=== PATIENT | female | born 1995 | race Hispanic/Latino ===

== ENCOUNTER 2018-08-18 22:04 | Emergency (ER) | payer OTHER ==
[2018-08-18 22:44] LABS: APPEARANCE,URINE Clear (CLEAR); BILIRUBIN,URINE Negative (NEGATIVE); COLOR,URINE Yellow (YELLOW); GLUCOSE, URINE (UA) Negative (NEGATIVE); KETONES,URINE Trace mg/dL (NEGATIVE); LEUKOCYTE ESTERASE ,URINE Small (NEGATIVE); NITRATE,URINE Negative (NEGATIVE); OCCULT BLOOD,URINE Negative (NEGATIVE); PH,URINE 6.5 (5.0-8.0); PROTEIN,URINE Trace (NEGATIVE)
[2018-08-18 22:48] LABS: HCG,QUAL RESULT NEGATIVE (NEGATIVE)
[2018-08-18 22:54] LABS: BACTERIA,URINE Few /HPF (None Seen); MUCUS,URINE Few LPF (None Seen); RBC,URINE 0-1 /HPF (0-1)
[2018-08-18] MEDS ORDERED: HYOSCYAMINE SULFATE 0.125 MG TAB.SUBL SL ONE (23:00)
[2018-08-18] MEDS ORDERED: ONDANSETRON ODT 4 MG TAB ONE (23:01)
[2018-08-18] MEDS ORDERED: TRAMADOL HCL 50 MG TABLET ONE (23:02)
[2018-08-19 00:15] LABS: CREATININE 0.5 mg/dL (0.5-1.5); POTASSIUM 3.8 mmol/L (3.5-5.1)
[2018-08-19 00:16] LABS: BASOPHILS % (AUTO) 0.5 % (0.0-5.0); EOSINOPHILS % (AUTO) 1.5 % (0.0-8.0); HEMATOCRIT 38.4 % (36-48); LYMPHOCYTES % (AUTO) 27.2 % (21.0-51.0); MEAN CORPUSCULAR HEMOGLOBIN 29.1 pg (27.0-33.0); MEAN CORPUSCULAR VOLUME 85.5 fL (79-99); NEUTROPHILS % (AUTO) 62.8 % (40.0-77.0); PLATELET COUNT (AUTO) 403 K/uL (130-400); RED BLOOD CELL COUNT(AUTO) 4.49 MIL/uL (4.00-5.50); RED CELL DISTRIBUTION WIDTH 13.1 % (11.0-15.5); WHITE BLOOD COUNT (AUTO) 12.5 K/uL (4.8-10.8)
[2018-08-19 00:20] LABS: ALBUMIN 3.7 g/dL (3.5-5.0); BILIRUBIN,TOTAL 0.1 mg/dL (0.2-1.0); TOTAL PROTEIN, SERUM 7.5 g/dL (6.0-8.3)
[2018-08-19] MEDS ORDERED: KETOROLAC TROMETHAMINE 30MG/ML ONE (00:43)
== END 2018-08-19 01:04 | disposition home or self-care (01) ==
LOC: EDH 22:04
DX: K80.50 Calculus of bile duct without cholangitis or cholecystitis without obstruction (principal); Z72.0 Tobacco use; Z98.890 Other specified postprocedural states
CPT/HCPCS: 36415; 80053; 81001; 81025; 85025; 96374; 99284; J1885

== ENCOUNTER 2019-03-04 15:15 | Observation (INO) | payer MEDICAID ==
[~2019-03-04] VITALS: Ht 147.3 cm; Wt 79.4 kg
[2019-03-04 15:57] LABS: APPEARANCE,URINE CLOUDY (CLEAR); BILIRUBIN,URINE NEGATIVE (NEGATIVE); COLOR,URINE YELLOW (YELLOW); GLUCOSE, URINE (UA) NEGATIVE (NEGATIVE); KETONES,URINE NEGATIVE (NEGATIVE); LEUKOCYTE ESTERASE ,URINE LARGE (NEGATIVE); NITRATE,URINE POSITIVE (NEGATIVE); OCCULT BLOOD,URINE MODERATE (NEGATIVE); PH,URINE 6.5 (5.0-8.0); PROTEIN,URINE TRACE mg/dL (NEGATIVE)
[2019-03-04 16:07] LABS: BACTERIA,URINE Moderate /HPF (None Seen)
[2019-03-04 16:08] LABS: MUCUS,URINE Few LPF (None Seen); SQUAMOUS EPITHELIAL CELL,UR Moderate /HPF (0-2)
[2019-03-04] MEDS ORDERED: LACTATED RINGERS 1000ML 1,000 ML IV ONE (17:00)
[2019-03-04] MEDS ORDERED: CEFTRIAXONE SODIUM 1 GM IV SCH (17:00)
[2019-03-04 18:55] LABS: AMPHET/METH SCREEN,URINE NEGATIVE (NEGATIVE); BARBITURATE SCREEN, URINE NEGATIVE (NEGATIVE); BENZODIAZEPINES SCREEN,URINE NEGATIVE (NEGATIVE); CANNABINOID SCREEN,URINE NEGATIVE (NEGATIVE); COCAINE SCREEN,URINE NEGATIVE (NEGATIVE); OPIATE SCREEN,URINE NEGATIVE (NEGATIVE); PHENCYCLIDINE SCREEN,URINE NEGATIVE (NEGATIVE)
== END 2019-03-04 17:15 | disposition home or self-care (01) ==
LOC: LDH 15:15
PROVIDERS: ADMIT Obstetrics & Gynecology; ATTEND Obstetrics & Gynecology
DX: O26.853 Spotting complicating pregnancy, third trimester (principal); Z3A.31 31 weeks gestation of pregnancy; Z79.899 Other long term (current) drug therapy
CPT/HCPCS: 76805; 76819; 80305; 81001; G0378 ×2; J0696; J7120 ×2; 96360; 96372

== ENCOUNTER 2019-04-28 21:48 | Emergency (ER) | payer MEDICAID | END 2019-04-28 22:12 | disposition home or self-care (01) | LOC: EDH 21:48 | DX: Z48.01 Encounter for change or removal of surgical wound dressing (principal); Z98.890 Other specified postprocedural states | CPT/HCPCS: 99281 ==

== ENCOUNTER 2019-05-15 12:46 | Observation (INO) | payer MEDICAID ==
[~2019-05-15] VITALS: Ht 144.8 cm; Wt 73.0 kg
[2019-05-15] MEDS ORDERED: SODIUM CHLORIDE 0.9% 1000ML 1,000 ML IV ONE ×2 (13:13→19:56)
[2019-05-15] MEDS ORDERED: ONDANSETRON HCL 4 MG/2 ML VIAL ONE (13:14)
[2019-05-15] MEDS ORDERED: KETOROLAC TROMETHAMINE 15MG/ML ONE (13:14)
[2019-05-15] MEDS ORDERED: DICYCLOMINE HCL 10 MG/ML 2ML AMP IM ONE (13:14)
[2019-05-15 14:22] LABS: BASOPHILS % (AUTO) 0.1 % (0.0-5.0); EOSINOPHILS % (AUTO) 0.1 % (0.0-8.0); HEMATOCRIT 38.7 % (36-48); LYMPHOCYTES % (AUTO) 5.8 % (21.0-51.0); MEAN CORPUSCULAR HEMOGLOBIN 26.9 pg (27.0-33.0); MEAN CORPUSCULAR HGB CONC 33.4 g/dL (32.0-36.0); MEAN CORPUSCULAR VOLUME 80.5 fL (79-99); MONOCYTES % (AUTO) 5.9 % (3.0-13.0); NEUTROPHILS % (AUTO) 88.1 % (40.0-77.0); PLATELET COUNT (AUTO) 463 K/uL (130-400); RED CELL DISTRIBUTION WIDTH 15.2 % (11.0-15.5); WHITE BLOOD COUNT (AUTO) 16.2 K/uL (4.8-10.8)
[2019-05-15 14:38] LABS: CREATININE 0.5 mg/dL (0.5-1.5); POTASSIUM 3.8 mmol/L (3.5-5.1)
[2019-05-15 14:44] LABS: BILIRUBIN,TOTAL 0.5 mg/dL (0.2-1.0); TOTAL PROTEIN, SERUM 8.6 g/dL (6.0-8.3)
[2019-05-15 14:52] LABS: APPEARANCE,URINE Clear (CLEAR); BILIRUBIN,URINE Negative (NEGATIVE); COLOR,URINE Yellow (YELLOW); GLUCOSE, URINE (UA) Negative (NEGATIVE); KETONES,URINE >=80 mg/dL (NEGATIVE); LEUKOCYTE ESTERASE ,URINE Negative (NEGATIVE); NITRATE,URINE Negative (NEGATIVE); OCCULT BLOOD,URINE Large (NEGATIVE); PH,URINE 5.5 (5.0-8.0); PROTEIN,URINE POS 2+ mg/dL (NEGATIVE)
[2019-05-15 14:56] LABS: HCG,QUAL RESULT NEGATIVE (NEGATIVE)
[2019-05-15 15:02] LABS: BACTERIA,URINE Few /HPF (None Seen); WBC,URINE 0-1 /HPF (0-1)
[2019-05-15] MEDS ORDERED: ZOSYN 3.375GM+NS 50ML 50 ML IV ONE ×2 (15:26→15:38)
[2019-05-15] MEDS ORDERED: MORPHINE SULFATE 2 MG/ML 1ML SYG IVP PRN (16:00)
[2019-05-15] MEDS ORDERED: KETOROLAC TROMETHAMINE 15MG/ML IM PRN (16:00)
[2019-05-15] MEDS ORDERED: MORPHINE SULFATE 2 MG/ML 1ML SYG IV PRN (16:15)
[2019-05-15] MEDS ORDERED: ONDANSETRON HCL 4 MG/2 ML VIAL IV PRN (16:15)
[2019-05-15] MEDS ORDERED: ZOLPIDEM TARTRATE 5 MG TAB PO PRN (16:15)
[2019-05-15] MEDS ORDERED: ACETAMINOPHEN 325 MG TAB PO PRN ×2 (16:15)
[2019-05-15] MEDS ORDERED: FAMOTIDINE 20MG TAB 20 MG TAB ONE (19:53)
[2019-05-15] MEDS: ZOSYN 3.375GM+NS 50ML 50 ML IV SCH (21:00)
[2019-05-15] MEDS: FAMOTIDINE 20MG TAB 20 MG TAB PO SCH (21:00)
[2019-05-15 21:40] VITALS: BP 126/91
[2019-05-15 23:08] VITALS: BP 158/78
[2019-05-16] VITALS (24 sets, daily range): BP systolic 98–150; BP diastolic 42–99
[2019-05-16] MEDS: SODIUM CHLORIDE 0.9% 1000ML 1,000 ML IV SCH ×3 (02:14→17:34)
[2019-05-16 04:16] LABS: HEMATOCRIT 34.8 % (36-48); MEAN CORPUSCULAR HEMOGLOBIN 26.4 pg (27.0-33.0); MEAN CORPUSCULAR HGB CONC 33.2 g/dL (32.0-36.0); MEAN CORPUSCULAR VOLUME 79.5 fL (79-99); PLATELET COUNT (AUTO) 377 K/uL (130-400); RED BLOOD CELL COUNT(AUTO) 4.38 MIL/uL (4.00-5.50); RED CELL DISTRIBUTION WIDTH 15.1 % (11.0-15.5); WHITE BLOOD COUNT (AUTO) 12.5 K/uL (4.8-10.8)
[2019-05-16 04:25] LABS: ALBUMIN 3.2 g/dL (3.5-5.0); BILIRUBIN,TOTAL 0.7 mg/dL (0.2-1.0); CREATININE 0.5 mg/dL (0.5-1.5); POTASSIUM 3.7 mmol/L (3.5-5.1); TOTAL PROTEIN, SERUM 7.2 g/dL (6.0-8.3)
[2019-05-16 04:39] LABS: EOSINOPHILS % (MANUAL) 2 % (1-6); LYMPHOCYTES % (MANUAL) 25 % (22-44); MAN.DIFF COMMENT-IMPRESSION MANUAL DIFFERENTIAL; MONOCYTES % (MANUAL) 8 % (2-9); PLATELET MORPHOLOGY COMMENT ADEQUATE; SEGMENTED NEUTROPHILS % 65 % (40-70)
[2019-05-16] MEDS: ZOSYN 3.375GM+NS 50ML 50 ML IV SCH ×3 (05:13→21:35)
--- NOTE | 2019-05-16 08:00 | NUR ---
ASSESSMENT: RECEIVED RESTING IN BED, EXPLAINED POC AND UNDERSTANDING VERBALIZED, CALL MG AT HER SIDE. UNDERSTANDS NPO STATUS. DENIES PAIN
[2019-05-16] MEDS: FAMOTIDINE 20MG TAB 20 MG TAB PO SCH ×2 (09:00→21:35)
--- NOTE | 2019-05-16 12:00 | NUR ---
CONSULT: DR FOX( SURGEON) HERE AND REVIEWED PT'S LABS , RADIOLOGY RESULTS. SPOKE WITH PT AND AND MADE RECOMMENDATIONS FOR SURGERY, DISCUSSED WITH PT PROCEDURE FOR LAPARASCOPIC CHOLECYSTECTOMY, POSSIBLE OPEN, PT AND VERBALIZE UNDERSTANDING AND AGREE WITH POC. DR FOX ANSWERED ALL OF PT'S QUESTIONS.
--- NOTE | 2019-05-16 12:45 | NUR ---
HYGEINE: TAKING SHOWER
--- NOTE | 2019-05-16 13:00 | NUR ---
CONSENT: CONSENT FOR LAP PAM, POSS OPEN PRESENTED TO PT AND WITNESSED SIGNATURE, UNDERSTANDS PROCEDURE EXPLAINED BY DR Kathy ODOM
--- NOTE | 2019-05-16 13:16 | NUR ---
BONDING: FEEDING BABY. FAMILY IN THE ROOM.
--- NOTE | 2019-05-16 13:25 | NUR ---
SURGERY: TAKEN TO THE OR DEPT VIA BED PER Severino MILAN RN (SBAR REPORT GIVEN) PT'S MOTHER AT HER SIDE.
[2019-05-16] MEDS ORDERED: MIDAZOLAM HCL 1 MG/ML 2ML VIAL ONE ×2 (13:35→14:20)
[2019-05-16] MEDS ORDERED: SUCCINYLCHOLINE 200MG/10ML SYR ONE (13:35)
[2019-05-16] MEDS ORDERED: LIDOCAINE PF 2% 5ML ABBOJECT ONE (13:35)
[2019-05-16] MEDS ORDERED: DEXAMETHASONE SOD PHOSPHATE 10MG/ML 1ML VIAL ONE ×2 (13:35→13:40)
[2019-05-16] MEDS ORDERED: ROCURONIUM 10MG/1ML SYR 10 MG/ML ML ONE (13:36)
[2019-05-16] MEDS ORDERED: FENTANYL CITRATE PF 50 MCG/1 ML 2ML VIAL ONE ×2 (13:36→14:55)
[2019-05-16] MEDS ORDERED: NEOSTIGMINE 5MG/5ML SYR IV ONE (13:36)
[2019-05-16] MEDS ORDERED: PROPOFOL 10 MG/ML 20ML VIAL IV ONE (13:36)
[2019-05-16] MEDS ORDERED: GLYCOPYRROLATE 1 MG/5 ML SYRINGE ONE (13:36)
[2019-05-16] MEDS ORDERED: ONDANSETRON HCL 4 MG/2 ML VIAL ONE (13:36)
[2019-05-16] MEDS ORDERED: LIDOCAINE HCL 2% JELLY 5 ML ONE (13:40)
[2019-05-16] MEDS ORDERED: LIDOCAINE HCL 4% LTA SOL 4 ML VIAL ONE (13:40)
[2019-05-16] MEDS ORDERED: ESMOLOL HCL 10 MG/ML 10 ML VIAL ONE (14:24)
--- NOTE | 2019-05-16 16:20 | NUR ---
POST OP: RECEIVED FROM PACU POST OP NICKOLAS OROZCO VIA BED TO 119. PT DROWSY, MADE COMFORTABLE, EXPLAINED POC AND UNDERSTANDING VERBALIZED, CALL MG AT HER SIDE. FAMILY IN THE ROOM.
--- NOTE | 2019-05-16 18:30 | NUR ---
ELIMINATION: AMB TO BR AND VOIDED LG AMTS CL YELLOW URINE. INSTRUCTED ON LOUISA CARE AND RETURNED DEMONSTRATION.
--- NOTE | 2019-05-16 18:54 | NUR ---
ACTIVITY: SITTING UP IN CHAIR, AND FAMILY IN THE ROOM.
[2019-05-16] MEDS ORDERED: OXYCODONE/ACETAMIN 5/325MG TAB PO PRN (19:00)
[2019-05-17 03:07] VITALS: BP 135/84
[2019-05-17 04:34] LABS: BASOPHILS % (AUTO) 0.2 % (0.0-5.0); LYMPHOCYTES % (AUTO) 9.8 % (21.0-51.0); MEAN CORPUSCULAR HEMOGLOBIN 27.3 pg (27.0-33.0); MEAN CORPUSCULAR VOLUME 80.5 fL (79-99); MONOCYTES % (AUTO) 6.8 % (3.0-13.0); NEUTROPHILS % (AUTO) 83.2 % (40.0-77.0); PLATELET COUNT (AUTO) 387 K/uL (130-400); RED BLOOD CELL COUNT(AUTO) 4.11 MIL/uL (4.00-5.50); WHITE BLOOD COUNT (AUTO) 10.8 K/uL (4.8-10.8)
[2019-05-17] MEDS: ZOSYN 3.375GM+NS 50ML 50 ML IV SCH (04:37)
[2019-05-17] MEDS: SODIUM CHLORIDE 0.9% 1000ML 1,000 ML IV SCH (04:38)
[2019-05-17 04:43] LABS: CREATININE 0.5 mg/dL (0.5-1.5); POTASSIUM 4.1 mmol/L (3.5-5.1)
[2019-05-17 07:00] VITALS: BP 130/79
--- NOTE | 2019-05-17 07:15 | NUR ---
ASSESSMENT: RECEIVED RESTING IN BED, EXPLAINED POC AND UNDERSTANDING VERBALIZED, DENIES PAIN. IV FLUIDS INF WELL. CALL MG AT HER SIDE.
--- NOTE | 2019-05-17 07:30 | NUR ---
ASSESSMENT: DR GASPAR HERE ASSESSED PT, REVIEWED AM LABS. SPOKE WITH PT AND DISCUSSED POC FOR DISCHARGE HOME TODAY IF OK WITH DR FOX, PT AND VERBALIZE UNDERSTANDING AND AGREE WITH POC.
[2019-05-17] MEDS ORDERED: IBUP-2077 PO (07:42)
[2019-05-17] MEDS ORDERED: CEPH-578 PO (07:42)
--- NOTE | 2019-05-17 09:30 | NUR ---
BONDING: BREAST FEEDING HER BABY.
--- NOTE | 2019-05-17 10:00 | NUR ---
ACTIVITY: AMBULATING IN ROOM WITH NO DISCOMFORT.
--- NOTE | 2019-05-17 11:00 | NUR ---
HYGEINE: TAKING SHOWER
--- NOTE | 2019-05-17 11:30 | NUR ---
DISCHARGE: SPOKE WITH DR FOX AND UPDATE GIVEN AND ORDERS TO DISCHARGE HOME AND FOLLOW UP IN 1 WEEK. PT MADE AWARE OF ORDERS.
--- NOTE | 2019-05-17 11:38 | NUR ---
ACTIVITY: AMB IN HALLWAY.
[2019-05-17 12:18] VITALS: BP 128/76
--- NOTE | 2019-05-17 13:00 | NUR ---
DISCHARGE: DISCHARGE INSTRUCTIONS GIVEN TO PT AND ON SELF CARE POST LAP PAM, DIET TO FOLLOW, INCISION CARE, ACTIVITY, REVIEWED RX'S FOR HOME MEDS AND TO FOLLOW UP WITH DR Kathy ANAYA ON FRIDAY 05/25 [id number] OR SOONER IF NEEDED. UNDERSTANDING VERBALIZED AND COPIES OF ALL INSTRUCTIONS GIVEN TO PT.
--- NOTE | 2019-05-17 13:15 | NUR ---
DISCHARGE: DISCHARGED HOME VIA W/C TO PRIVATE CAR WITH .
== END 2019-05-17 13:15 | disposition home or self-care (01) ==
LOC: EDH 12:46 → EDHIP 12:47 → WSH 21:29
PROVIDERS: ADMIT Family Medicine; ATTEND Family Medicine
DX: K80.00 Calculus of gallbladder with acute cholecystitis without obstruction (principal); E66.9 Obesity, unspecified; R11.2 Nausea with vomiting, unspecified; D72.829 Elevated white blood cell count, unspecified; Z83.3 Family history of diabetes mellitus; Z82.49 Family history of ischemic heart disease and other diseases of the circulatory system; Z79.899 Other long term (current) drug therapy
CPT/HCPCS: 36415 ×3; 47562; 76705; 80048; 80053 ×2; 81001; 81025; 83690; 85025 ×3; 88304; 96361 ×2; 96365; 96366 ×2; 96375; 99284; A4450; A4600; A4649 ×4; A6204; A6207; C1769 ×3; G0378 ×45; J0330; J0500; J1100 ×2; J1885; J2001; J2250 ×2; J2405 ×2; J2543 ×7; J2704; J2710; J3010 ×2; J3490 ×2; J7030 ×3

== ENCOUNTER 2019-09-12 13:50 | Emergency (ER) | payer OTHER ==
[~2019-09-12 13:50] MED LIST: CEPH-578 PO; IBUP-2077 PO
[2019-09-12 15:32] LABS: BASOPHILS % (AUTO) 0.2 % (0.0-5.0); LYMPHOCYTES % (AUTO) 20.8 % (21.0-51.0); MEAN CORPUSCULAR HEMOGLOBIN 26.5 pg (27.0-33.0); MEAN CORPUSCULAR HGB CONC 32.7 g/dL (32.0-36.0); MEAN CORPUSCULAR VOLUME 81.1 fL (79-99); MONOCYTES % (AUTO) 7.4 % (3.0-13.0); NEUTROPHILS % (AUTO) 70.3 % (40.0-77.0); PLATELET COUNT (AUTO) 445 K/uL (130-400); RED BLOOD CELL COUNT(AUTO) 4.56 MIL/uL (4.00-5.50); WHITE BLOOD COUNT (AUTO) 9.2 K/uL (4.8-10.8)
[2019-09-12 15:42] LABS: CREATININE 0.5 mg/dL (0.5-1.5); POTASSIUM 3.9 mmol/L (3.5-5.1)
[2019-09-12 16:03] LABS: APPEARANCE,URINE Clear (CLEAR); BILIRUBIN,URINE Negative (NEGATIVE); GLUCOSE, URINE (UA) Negative (NEGATIVE); KETONES,URINE Negative (NEGATIVE); LEUKOCYTE ESTERASE ,URINE Trace (NEGATIVE); NITRATE,URINE Negative (NEGATIVE); OCCULT BLOOD,URINE Trace (NEGATIVE); PROTEIN,URINE Negative (NEGATIVE); UROBILINOGEN,URINE 0.2 mg/dL (0.2-1.0)
[2019-09-12 16:09] LABS: COLOR,URINE STRAW (YELLOW)
[2019-09-12 16:10] LABS: BACTERIA,URINE None Seen /HPF (None Seen); RBC,URINE None Seen /HPF (0-1); SQUAMOUS EPITHELIAL CELL,UR 0-2 /HPF (0-2); WBC,URINE 0-1 /HPF (0-1)
== END 2019-09-12 16:47 | disposition home or self-care (01) ==
LOC: EDH 13:50
DX: O20.0 Threatened abortion (principal); Z3A.00 Weeks of gestation of pregnancy not specified; Z98.890 Other specified postprocedural states; Z90.49 Acquired absence of other specified parts of digestive tract
CPT/HCPCS: 36415; 76801; 80048; 81001; 84702; 85025; 86900; 86901

== ENCOUNTER 2019-09-14 08:17 | Emergency (ER) | payer OTHER | END 2019-09-14 10:20 | disposition home or self-care (01) | LOC: EDH 08:17 | DX: O03.9 Complete or unspecified spontaneous abortion without complication (principal); Z90.49 Acquired absence of other specified parts of digestive tract; Z3A.01 Less than 8 weeks gestation of pregnancy | CPT/HCPCS: 36415; 84702 ==

== ENCOUNTER 2023-08-22 10:48 | Emergency (ER) | payer MEDICAID, OTHER ==
[~2023-08-22] VITALS: Ht 144.8 cm; Wt 87.1 kg
[2023-08-22 10:50] VITALS: BP 154/94; PULSE 71; RESP 18
[2023-08-22 12:00] LABS: BASOPHILS # (AUTO) 0.03 K/uL (0.00-0.20); BASOPHILS % (AUTO) 0.4 % (0.0-5.0); EOSINOPHILS # (AUTO) 0.18 K/uL (0.00-0.70); EOSINOPHILS % (AUTO) 2.3 % (0.0-8.0); HEMATOCRIT 40.2 % (36-48); IMMATURE GRANULOCYTE ABSOLUTE 0.04 K/uL (0-1); LYMPHOCYTES # (AUTO) 1.9 K/uL (1.0-4.8); LYMPHOCYTES % (AUTO) 23.6 % (21.0-51.0); MEAN CORPUSCULAR HEMOGLOBIN 28.1 pg (27.0-33.0); MEAN CORPUSCULAR HGB CONC 34.1 g/dL (32.0-36.0); MEAN CORPUSCULAR VOLUME 82.5 fL (79-99); MONOCYTES # (AUTO) 0.6 K/uL (0.1-1.0); MONOCYTES % (AUTO) 7.4 % (3.0-13.0); NEUTROPHILS # (AUTO) 5.2 K/uL (1.8-7.7); NEUTROPHILS % (AUTO) 65.8 % (40.0-77.0); PLATELET COUNT (AUTO) 370 K/uL (130-400); RED BLOOD CELL COUNT(AUTO) 4.87 MIL/uL (4.00-5.50); RED CELL DISTRIBUTION WIDTH 12.9 % (11.0-15.5)
[2023-08-22 12:08] LABS: APPEARANCE,URINE CLOUDY (CLEAR); BILIRUBIN,URINE NEGATIVE (NEGATIVE); COLOR,URINE YELLOW (YELLOW); GLUCOSE, URINE (UA) NEGATIVE (NEGATIVE); KETONES,URINE NEGATIVE (NEGATIVE); LEUKOCYTE ESTERASE ,URINE NEGATIVE Leu/uL (NEGATIVE); NITRATE,URINE NEGATIVE (NEGATIVE); OCCULT BLOOD,URINE NEGATIVE (NEGATIVE); PROTEIN,URINE 10 mg/dL (NEGATIVE); UROBILINOGEN,URINE 0.2 mg/dL (0.2-1.0)
[2023-08-22 12:14] LABS: ALBUMIN 3.6 g/dL (3.5-5.0); BILIRUBIN,TOTAL 0.3 mg/dL (0.2-1.0); CREATININE 0.5 mg/dL (0.5-1.5); POTASSIUM 3.9 mmol/L (3.5-5.1); TOTAL PROTEIN, SERUM 7.7 g/dL (6.0-8.3)
[2023-08-22 12:19] LABS: ADD UA MICROSCOPIC YES
[2023-08-22 12:22] LABS: MUCUS,URINE RARE LPF (None Seen); SQUAMOUS EPITHELIAL CELL,UR MOD /HPF (0-2)
== END 2023-08-22 12:38 | disposition home or self-care (01) ==
LOC: EDH 10:48
DX: R00.2 Palpitations (principal); T43.615A Adverse effect of caffeine, initial encounter; Y92.89 Other specified places as the place of occurrence of the external cause
CPT/HCPCS: 36415; 71045; 80053; 81001; 84484; 85025; 87088; 93005

== ENCOUNTER 2025-01-18 12:57 | Emergency (ER) | payer MEDICAID ==
[~2025-01-18] VITALS: Ht 144.8 cm; Wt 74.8 kg
[2025-01-18 14:11] LABS: APPEARANCE,URINE CLEAR (CLEAR); BILIRUBIN,URINE NEGATIVE (NEGATIVE); COLOR,URINE YELLOW (YELLOW); GLUCOSE, URINE (UA) NEGATIVE (NEGATIVE); KETONES,URINE NEGATIVE (NEGATIVE); LEUKOCYTE ESTERASE ,URINE NEGATIVE Leu/uL (NEGATIVE); NITRATE,URINE NEGATIVE (NEGATIVE); OCCULT BLOOD,URINE NEGATIVE (NEGATIVE); PROTEIN,URINE 10 mg/dL (NEGATIVE); UROBILINOGEN,URINE 0.2 mg/dL (0.2-1.0)
[2025-01-18 14:16] LABS: HCG,QUALITATIVE URINE NEGATIVE (NEGATIVE)
[2025-01-18 14:17] LABS: ADD UA MICROSCOPIC YES
[2025-01-18 14:19] LABS: MUCUS,URINE MOD LPF (None Seen); OTHER CASTS, URINE 1 /LPF (None Seen); SQUAMOUS EPITHELIAL CELL,UR MANY /HPF (0-2)
[2025-01-18 14:28] VITALS: BP 141/87; PULSE 85; RESP 20; TEMP 97.9; O2SAT 98
[2025-01-18] MEDS ORDERED: DOXY100T2 PO (14:50)
--- NOTE | 2025-01-18 14:51 | ERN ---
General Chief Complaint: Sexually Transmitted Disease Stated Complaint: WANTED TO GET CHECKED OUT FOR AN STD Time Seen by MD: 12:58 Time Seen by Midlevel: 12:58 History of Present Illness Allergies: Coded Allergies: No Known Drug Allergies (Unverified Allergy, Unknown, 03/04/19) Home Meds Active Scripts Doxycycline Hyclate (Doxycycline Hyclate) 100 Mg Tablet, 1 TAB PO BID for 10 Days, #20 TAB 0 Refills Prov:LIZ BRADY 01/18/25 Cephalexin (Keflex) 500 Mg Capsule, 500 MG PO TID for 7 Days, #21 CAP Prov:CHASITY GUSTAFSON MD 05/17/19 Ibuprofen (Ibuprofen 800 mg Tab) 800 Mg Tab, 800 MG PO Q6H PRN for PAIN LEVEL 6 TO 10 for 5 Days, #15 TAB Prov:CHASITY GUSTAFSON MD 05/17/19 Past Medical History Past Medical History: No Pertinent History, Other Medical History Other: HTN IN Past Surgical History: BTL, Female( History) LMP: January 10, 2025 Results Laboratory and Microbiology Lab and Micro Result Laboratory Tests Test 01/18/25 13:59 Urine Color YELLOW (YELLOW) Urine Appearance CLEAR (CLEAR) Urine pH 6.0 (5.0-8.0) Urine Specific [place] 1.030 (1.001-1.031) Urine Protein 10 mg/dL (NEGATIVE) H Urine Glucose (UA) NEGATIVE mg/dL (NEGATIVE) Urine Ketones NEGATIVE mg/dL (NEGATIVE) Urine Occult Blood NEGATIVE (NEGATIVE) Urine Nitrate NEGATIVE (NEGATIVE) Urine Bilirubin NEGATIVE mg/dL (NEGATIVE) Urine Urobilinogen 0.2 mg/dL (0.2-1.0) Urine Leukocyte Esterase NEGATIVE Abdoulaye/uL Urine RBC 2-5 /HPF (0-1) H Urine WBC 2-5 /HPF (0-1) H Urine Squamous Epithelial Cells MANY /HPF (0-2) Urine Bacteria None /HPF (None Seen) Urine Other Casts 1 /LPF (None Seen) Urine HCG, Qualitative NEGATIVE (NEGATIVE) ED Course Orders Procedure Category Date Status Time Urinalysis Profile LAB 01/18/25 Complete 13:18 ,Urine Test LAB 01/18/25 Complete 13:18 Chlamydia & Gc Pcr MINO 01/18/25 In Process 13:18 Ceftriaxone 1g Vial PHA 5/27/25 In Process (Rocephine 1g Inj) 15:00 Current Medications Medications (Trade) Dose Ordered Sig/La Route PRN Reason Start Time Stop Time Status Last Admin Dose Admin Ceftriaxone Sodium (ROCEphine 1G INJ) 1 gm ONCE ONCE IVPB 01/18/25 15:00 01/18/25 15:01 Vital Signs Date Time Temp Pulse Resp B/P (MAP) Pulse Ox O2 Delivery O2 Flow Rate FiO2 01/18/25 14:28 97.9 85 20 141/87 98 Room Air* 0 21 01/18/25 13:14 97.7 88 20 151/91 98 Room Air DX & DISP Disposition: Discharge Departure Impression: Primary Impression: Possible exposure to STD Condition: Stable Scripts Doxycycline Hyclate (Doxycycline Hyclate) 100 Mg Tablet 1 TAB PO BID for 10 Days, #20 TAB 0 Refills Prov: LIZ BRADY 01/18/25 Referrals: ZABRINA MARTINEZ (PCP) I have reviewed the case, and I agree with, Diagnosis and Plan I performed the substantive portion of the visit. I have reviewed and personally made and approve the management plan that is documented in the note by myself or the HAL. I acknowledge for responsibility for the patient's management plan. LIZ BRADY January 18, 2025 14:51
[2025-01-18] MEDS: cefTRIAXone 1G VIAL IVPB ONE (14:57)
== END 2025-01-18 15:27 | disposition home or self-care (01) ==
LOC: EDH 12:57
DX: Z20.2 Contact with and (suspected) exposure to infections with a predominantly sexual mode of transmission (principal); Z98.51 Tubal ligation status; Z79.899 Other long term (current) drug therapy
CPT/HCPCS: 99283; 96374; 87491; 87591; 81001; 81025; J0696